=== PATIENT | female | born 1995 | race Two or more races ===

== ENCOUNTER 2017-05-15 12:19 | Inpatient (IN) ==
[2017-05-15] MEDS ORDERED: BUTORPHANOL 2 MG/ML VIAL IV PRN (13:35)
[2017-05-15 13:51] LABS: Basophils % 0.2 % (0.0-0.8); Eosinophils % 0.4 % (0.00-10.9); Hematocrit 30.6 VOL% (35.7-47.0); Hemoglobin 9.9 GM/DL (12.0-16.0); Immature Granulocytes % 0.7 %; Immature Granulocytes Absolute 0.08 #; Lymphocytes # 1.8 10*3/uL (1.4-4.0); Lymphocytes % 16.1 % (21.3-54.2); Mean Corpuscular HGB Conc 32.4 GM/DL (32-36); Mean Corpuscular Hemoglobin 28 PG (27-34); Mean Platelet Volume 12.5 FL (9.6-12.0); Monocytes # 0.8 10*3/uL (0.11-0.8); Monocytes % 7.3 % (1.7-12.7); NRBC # 0.02 10*3/uL; Neutrophils # 8.5 10*3/uL (1.4-7.4); Neutrophils % 75.3 % (38.7-73.9); Platelet Count 256 T/CUMM (130-400); Red Blood Count 3.56 MC/CUMM (3.8-5.5); Red Cell Distribution Width 13.7 % (9.3-17.3); White Blood Count 11.2 T/CUMM (4-12)
--- NOTE | 2017-05-15 15:32 | OB/GYN History & Physical ---
History of Present Illness Chief complaint: Here for induction of labor with CRUZ 5.2 cm on ultrasound today. History of present illness: Ms. Em is a 21 year old female Patient is a 21-year-old 1 para 0000 that presented for induction of labor at 40.3 weeks with an CRUZ of 5.2 cm noted on ultrasound today. She is 40.3 weeks gestation today. She receives care at [facility] with Cristal Linares women's health nurse practitioner. She had a total of 16 visits 3 ultrasound. Her records are available, current, have been reviewed, and are up-to-date. During the course of her , she has essentially not had any problems. Her group A strep test has been negative Medications: vitamins Labs: Blood type and RH O+, antibody screen negative, Rubella nonimmune at 2.3, HIV negative, HBsAG negative, GC negative, Chlamydia negative, Diabetic Screen 128, GBS negative Home Medications Medication Instructions Recorded Confirmed Type Ondansetron Odt Tab [Zofran Odt] 4 mg PO Q8H PRN #30 tablet 11/04/16 05/15/17 Rx Allergies Allergy/AdvReac Type Severity Reaction Status Date / Time Penicillins Allergy Unknown/Unable Verified 11/04/16 13:34 to obtain 12 point system: reviewed and no additional remarkable complaints except as stated Medical,Surgical,& Family Hx - Medical History Medical History: noncontributory Reproductive: No history of: Ectopic , Complication Other: History of: Miscellaneous Medical Problems (11 weeks 6 days ) - Surgical History Surgical History: noncontributory Reproductive Surgeries: Patient denies;: Section - Family History Family History: Reports;: Family Diabetes (FATHER), Family Psychiatric Problems (ALZHEIMERS, MGF) Denies;: Additional Family History - Social History Smoking Status: Never smoker Frequency of Alcohol Use: None Type of Drug Use: None Marital Status: Lives With:: Spouse Functional capacity: independent ambulation Exam CLAIM PROFESSIONAL - Constitutional General appearance: no acute distress - Antepartum / Post Antepartum Exam Cervix - Dilatation: 1 cm Effacement: 0 Station: -3 Rupture: intact Presentation: vtx Heart Rate: 137 [place]: irregular/ 40-50 sec/ mild Breast: bilateral: normal Abdomen obstetrics: Present: bowel sounds normal Vagina: Present: normal moisture Uterus exam: Present: enlarged (gravid, soft between contractions, EFW 7 pounds 11 ounces) Anus/Rectum: Present: normal perianal skin - Head Head exam: Present: normal inspection - Eye Eye exam: Present: EOMI - ENT ENT exam: Present: normal exam - Neck Neck exam: Present: normal inspection - Respiratory Respiratory exam: Present: clear to auscultation bilaterally - Cardiovascular Cardiovascular exam: Present: regular rate and rhythm - GI/Abdominal GI/Abdominal exam: Present: normal bowel sounds - Extremities Exam Extremities exam: Present: normal inspection, normal capillary refill, full ROM - Back Exam Back exam: Present: normal inspection - Neurological Exam Neurological exam: Present: alert, oriented X3, normal gait - Psychiatric Psychiatric exam: Present: normal affect, normal mood - Skin Skin exam: Present: normal color, warm, dry Assessment and Plan (1) Post-dates Status: Acute Current Visit: Yes (2) Anemia Status: Acute Current Visit: Yes Qualifiers: Anemia type: iron deficiency Results - Labs CBC & BMP: 05/15/17 13:43 Labs: Laboratory Tests 05/15/17 05/15/17 13:43 13:43 WBC 11.2 RBC 3.56 L Hgb 9.9 L Hct 30.6 L MCV 86.0 L MCH 28 MCHC 32.4 RDW 13.7 Plt Count 256 MPV 12.5 H Neut % (Auto) 75.3 H Lymph % (Auto) 16.1 L [place] % (Auto) 7.3 Eos % (Auto) 0.4 Baso % (Auto) 0.2 Neut # (Auto) 8.5 H Lymph # (Auto) 1.8 [place] # (Auto) 0.8 Eos # (Auto) 0.0 Baso # (Auto) 0.0 Immature Gran % 0.7 Nucleated RBC % 0.2 Immature Gran # 0.08 Nucleated RBCs # 0.02 Immature Plt Fraction 0.0 Blood Type O POSITIVE Antibody Screen Negative Quality Measures - VTE Contraindication to Pharmacological VTE Prophylaxis: Continuous Epidural Infusion
[2017-05-15] MEDS: LACTATED RINGERS 1,000 ML IV SCH (23:27)
[2017-05-16] MEDS: LACTATED RINGERS 1,000 ML IV SCH ×2 (00:59→06:23)
[2017-05-16] MEDS: ONDANSETRON 4 MG/2 ML VIAL IV PRN ×2 (03:13→20:05)
[2017-05-16] MEDS ORDERED: OXYTOCIN/LR 20 UNIT/1,000 ML BAG IV SCH (05:30)
[2017-05-16] MEDS ORDERED: ePHEDrine 50 MG/ML AMP IV PRN (06:04)
[2017-05-16] MEDS ORDERED: CITRIC ACID/SODIUM CITRATE 30 ML UDCUP PO ONE (06:04)
[2017-05-16] MEDS ORDERED: FAMOTIDINE 20 MG/2 ML VIAL IV ONE (06:04)
[2017-05-16] MEDS ORDERED: fentaNYL 2 MCG/ROPIV 0.2% EPID 150 ML EPIDURAL SCH (06:05)
[2017-05-16 08:18] LABS: Apearance,Urine CLEAR (Clear); Bilirubin,Urine Negative (Negative); Blood, Urine Negative (Negative); Glucose,Urine (UA) Negative (Negative); Ketones,Urine Negative (Negative); Nitrite,Urine Negative (Negative); Protein,Urine Negative; RBC,Urine <1 /HPF (0-4); Urine Color Straw (Yellow); Urine Specific Gravity 1.003 (1.001-1.035); Urine Urobilinogen < 2.0 EU/DL (0.2-1.0); WBC,Urine <1 /HPF (0-6)
--- NOTE | 2017-05-16 08:46 | OB/GYN Progress Note ---
Assessment and Plan (1) Post-dates Status: Acute Current Visit: Yes (2) Anemia Status: Acute Current Visit: Yes Qualifiers: Anemia type: iron deficiency FUNDER - PN: Subj Interval history: S: Denies any contractions since epidural was placed. Denies pressure, contractions, or pain. O: FHTs @ 140s with spontaneous variability and irregular variable and occasional late decelerations, nonrepetitive UCs every 2-4 min/ 50-60 sec/ mod SVE 6-7 cm/ 90%/ 0 to +1 station GBS negative Pitocin @ 6 mu/min A: IUP @ 40.4 wks, Pitocin Induction, Category I FHR tracing P: Start amnioinfusion. Reposition for comfort. Questions answered to desired level of satisfaction. Exam FUNDER - Constitutional Vitals: Vital Signs Temp Pulse Resp BP 05/16/17 08:00 97.0 F L 82 20 106/54 05/16/17 04:00 97.2 F L 67 18 103/56 05/16/17 03:42 97.2 F L 05/16/17 00:00 97.4 F L 78 18 93/54 05/15/17 19:20 97.1 F L 84 18 115/77 Results - Labs CBC & BMP: 05/15/17 13:43
[2017-05-16] MEDS ORDERED: miSOPROStol 200 MCG TABLET ONE (10:28)
[2017-05-16] MEDS ORDERED: LIDOCAINE 1% 50 ML VIAL ONE (10:28)
[2017-05-16] MEDS ORDERED: METHYLERGONOVINE 0.2 MG/1 ML AMP ONE (10:28)
--- NOTE | 2017-05-16 12:03 | Operative Note ---
Date of procedure: 05/16/17 Pre-op diagnosis: IUP of 40.3 weeks gestation, postdates, CRUZ 5.3 cm Post-op diagnosis: other () Procedure: Patient received dorsolithotomy position, complete and +2 station. Patient was draped and prepped. At 1135, head delivered in LIA position on the maternal pushing efforts with an epidural anesthetic over a midline episiotomy. Anterior then posterior shoulders were delivered easily without difficulty. delivered in usual fashion and secured with terminal meconium noted at delivery of . Mouth and nose bulb suctioned. Tactile stimulation provided to the in a placed on mother's abdomen. Cord doubly clamped and cut her father of the baby. Blood gases and cord blood obtained. placed in a radiant warmer per nursery guardian and attended per nursery RN. At 1138, spontaneous delivery of placenta via Thang position, with 3 vessel cord noted, normal cord insertion, with small calcifications present with normal cord insertion. Hemostasis maintained with fundal massage and Pitocin 20 units in 1000 cc of lactated Ringer's. Perineum inspected with midline episiotomy repair with a 2-0 chromic 2 under an epidural anesthetic. Female with Apgars 2 and 8 weighing 7 lbs. 2 oz. at 3293 grams. Mother is stable and in the room at the present time. Baby presently in the nursery per nursery RN. Mother desires to breast-feed. Anesthesia: epidural Surgeon / Physician: Delicia Rubio Estimated blood loss: other (150 cc) Specimens: other (placenta to pathology secondary to CRUZ 5.3 cm, spontaneous variable and late decelerations, postdates @ 40.3 wks gestation) Condition: stable Disposition: floor Results - Labs CBC & BMP: 05/15/17 13:43 Discharge Plan - Discharge Medications No Action Ondansetron Odt Tab [Zofran Odt] 4 mg PO Q8H PRN #30 tablet PRN Reason: Nausea - Follow Up or Referral - Forms/Instructions
[2017-05-16] MEDS ORDERED: RHO(D) IMMUNE GLOBULIN 300 MCG SYRINGE IM ONE (12:05)
[2017-05-16] MEDS ORDERED: ACETAMINOPHEN 325 MG TABLET PO PRN (12:05)
[2017-05-16] MEDS ORDERED: WITCH HAZEL PADS 100/JAR TOP PRN (12:05)
[2017-05-16] MEDS ORDERED: HYDROCORTISONE 2.5% RECTAL CREAM 30 GM TUBE TOP PRN (12:05)
[2017-05-16] MEDS ORDERED: BISACODYL 10 MG SUPP RECTAL PRN (12:05)
[2017-05-16] MEDS ORDERED: oxyCODONE/ACETAMINOPHEN 5-325 MG TABLET PO PRN ×3 (12:05→20:13)
[2017-05-16] MEDS ORDERED: DIPH/TET/ACEL PERT BOOSTER VACCINE 0.5 ML VIAL IM ONE (12:05)
[2017-05-16] MEDS ORDERED: LANOLIN 50% CREAM 0.3 OZ TUBE TOP PRN (12:05)
[2017-05-16] MEDS ORDERED: MEASLES/MUMPS/RUBELLA VACCINE 0.5 ML VIAL SUBCUT ONE (12:05)
[2017-05-16] MEDS ORDERED: IBUPROFEN 800 MG TABLET PO PRN (12:07)
[2017-05-16] MEDS ORDERED: OXYTOCIN/LR 20 UNIT/1,000 ML BAG IV ONE (15:32)
[2017-05-16] MEDS: BENZOCAINE 20%/MENTHOL 0.5% SPRAY 56 GM CAN TOP PRN (15:36)
[2017-05-16] MEDS: IBUPROFEN 800 MG TABLET PO PRN (15:36)
[2017-05-16] MEDS: DOCUSATE SODIUM 100 MG CAPSULE PO SCH (21:02)
[2017-05-16] MEDS: FERROUS SULFATE 325 MG TABLET PO SCH (21:03)
[2017-05-16] MEDS: oxyCODONE/ACETAMINOPHEN 5-325 MG TABLET PO PRN (21:03)
[2017-05-17] MEDS: oxyCODONE/ACETAMINOPHEN 5-325 MG TABLET PO PRN ×3 (04:34→23:20)
[2017-05-17 06:08] LABS: Basophils % 0.2 % (0.0-0.8); Eosinophils # 0.1 10*3/uL (0.0-0.87); Eosinophils % 0.5 % (0.00-10.9); Hematocrit 26.3 VOL% (35.7-47.0); Hemoglobin 8.7 GM/DL (12.0-16.0); Immature Granulocytes % 0.7 %; Lymphocytes # 2.6 10*3/uL (1.4-4.0); Mean Corpuscular HGB Conc 33.1 GM/DL (32-36); Mean Corpuscular Hemoglobin 28 PG (27-34); Mean Corpuscular Volume 84.8 FL (87-102); Mean Platelet Volume 11.8 FL (9.6-12.0); Monocytes % 7.1 % (1.7-12.7); Neutrophils # 9.9 10*3/uL (1.4-7.4); Neutrophils % 72.5 % (38.7-73.9); Platelet Count 195 T/CUMM (130-400); Red Cell Distribution Width 14.1 % (9.3-17.3); White Blood Count 13.7 T/CUMM (4-12)
[2017-05-17] MEDS: FERROUS SULFATE 325 MG TABLET PO SCH ×4 (08:38→23:36)
[2017-05-17] MEDS: DOCUSATE SODIUM 100 MG CAPSULE PO SCH ×3 (08:38→23:36)
[2017-05-17] MEDS: IBUPROFEN 800 MG TABLET PO PRN (08:41)
--- NOTE | 2017-05-17 08:41 | OB/GYN Progress Note ---
Assessment and Plan (1) Post-dates Status: Acute Current Visit: Yes (2) Anemia Status: Acute Current Visit: Yes Qualifiers: Anemia type: iron deficiency (3) (normal spontaneous vaginal delivery) Status: Acute Current Visit: Yes (4) Patient is a currently breast-feeding mother Status: Acute Current Visit: Yes TERRAZZO LAYER - PN: Subj Interval history: Breast feeding. Denies any problems presently. Requests control pills for control method of choice. A: Day 1, Breast Feeding, Stable, Anemia P: Continue routine care. Possible DC home tomorrow if stable. Exam TERRAZZO LAYER - Constitutional Vitals: Vital Signs Temp Pulse Resp BP Pulse Ox 05/17/17 07:24 97.2 F L 87 18 103/67 95 05/17/17 04:00 97.3 F L 84 16 102/60 98 05/17/17 03:00 18 05/17/17 01:00 18 05/16/17 23:50 98.6 F 87 18 104/65 96 05/16/17 20:10 85 18 106/60 98 05/16/17 20:00 97.3 F L 82 18 108/61 98 05/16/17 16:30 98.1 F 82 18 110/65 98 05/16/17 15:30 97.4 F L 76 18 121/78 100 05/16/17 12:00 97.8 F 109 H 20 110/58 General appearance: no acute distress - Antepartum / Post Post Exam Breast: bilateral: normal Abdomen obstetrics: Present: bowel sounds normal Vagina: Present: normal moisture Uterus exam: Present: enlarged (Firm, midline, 1 fingerbreadth below the umbilicus) Adnexa: bilateral: normal Anus/Rectum: Present: normal perianal skin - Head Head exam: Present: normal inspection - Eye Eye exam: Present: EOMI Pupils: Present: normal accommodation - ENT ENT exam: Present: normal exam, normal external ear exam - Neck Neck exam: Present: normal inspection - Respiratory Respiratory exam: Present: clear to auscultation bilaterally - Breast Menstruation: other (scant rubra) - Cardiovascular Cardiovascular exam: Present: regular rate and rhythm - GI/Abdominal GI/Abdominal exam: Present: normal bowel sounds - Extremities Exam Extremities exam: Present: normal inspection, normal capillary refill, full ROM - Back Exam Back exam: Present: normal inspection - Neurological Exam Neurological exam: Present: alert, oriented X3, normal gait - Psychiatric Psychiatric exam: Present: normal affect, normal mood - Skin Skin exam: Present: normal color, warm, dry Results - Labs CBC & BMP: 05/17/17 05:54 Labs: Laboratory Tests 05/15/17 05/15/17 05/16/17 13:43 13:43 07:44 WBC 11.2 RBC 3.56 L Hgb 9.9 L Hct 30.6 L MCV 86.0 L MCH 28 MCHC 32.4 RDW 13.7 Plt Count 256 MPV 12.5 H Neut % (Auto) 75.3 H Lymph % (Auto) 16.1 L [place] % (Auto) 7.3 Eos % (Auto) 0.4 Baso % (Auto) 0.2 Neut # (Auto) 8.5 H Lymph # (Auto) 1.8 [place] # (Auto) 0.8 Eos # (Auto) 0.0 Baso # (Auto) 0.0 Immature Gran % 0.7 Nucleated RBC % 0.2 Immature Gran # 0.08 Nucleated RBCs # 0.02 Immature Plt Fraction 0.0 Urine Color Straw Urine Appearance Clear Urine pH 7.0 Ur Specific [place] 1.003 Urine Protein Negative Urine Glucose (UA) Negative Urine Ketones Negative Urine Blood Negative Urine Nitrate Negative Urine Bilirubin Negative Urine Urobilinogen < 2.0 H Urine Leukocytes Negative Urine RBC <1 Urine WBC <1 Ur Culture Indicated? Not indicated Blood Type O POSITIVE Antibody Screen Negative 05/17/17 05:54 WBC 13.7 H RBC 3.10 L Hgb 8.7 L Hct 26.3 L MCV 84.8 L MCH 28 MCHC 33.1 RDW 14.1 Plt Count 195 D MPV 11.8 Neut % (Auto) 72.5 Lymph % (Auto) 19.0 L [place] % (Auto) 7.1 Eos % (Auto) 0.5 Baso % (Auto) 0.2 Neut # (Auto) 9.9 H Lymph # (Auto) 2.6 [place] # (Auto) 1.0 H Eos # (Auto) 0.1 Baso # (Auto) 0.0 Immature Gran % 0.7 Nucleated RBC % 0.0 Immature Gran # 0.10 Nucleated RBCs # 0.00 Immature Plt Fraction 0.0 Urine Color Urine Appearance Urine pH Ur Specific [place] Urine Protein Urine Glucose (UA) Urine Ketones Urine Blood Urine Nitrate Urine Bilirubin Urine Urobilinogen Urine Leukocytes Urine RBC Urine WBC Ur Culture Indicated? Blood Type Antibody Screen
[2017-05-17] MEDS ORDERED: SIMETHICONE CHEW 80 MG TABLET PO PRN (19:14)
[2017-05-17] MEDS ORDERED: MAGNESIUM HYDROXIDE SUSP 30 ML UDCUP PO PRN (19:14)
[2017-05-18] MEDS: oxyCODONE/ACETAMINOPHEN 5-325 MG TABLET PO PRN (04:36)
[2017-05-18 07:17] VITALS: BP 84/57
--- NOTE | 2017-05-18 09:04 | Discharge Summary ---
Hospital Course - Hospital Course Hospital Course: Patient is a 1 now para 1 that presented at 40.3 weeks for induction of labor secondary to postdates and an CRUZ of 5.3. Labor progressed under an epidural anesthetic and Cytotec and Pitocin induction for the patient to deliver a female weighing 7 lbs. 2 oz. with Apgars 2 and 8. Patient did have a midline episiotomy that was repaired and is healing well without problems. Patient is presently breast-feeding without difficulty. She indicates she has noticed some sore nipples during breast-feeding but denies any other problems. She did experience anemia prior to and she has received iron during her hospitalization. She is stable and being discharged home today Diagnosis - Discharge Diagnosis (1) Post-dates Status: Resolved (2) Anemia Status: Acute (3) (normal spontaneous vaginal delivery) Status: Resolved (4) Patient is a currently breast-feeding mother Status: Acute Discharge Plan - Discharge Data Disposition: Disch To Home/Self Care Condition at Discharge: Stable Discharge Diet: advance to your usual diet Activity: resume usual activities as tolerated Hygiene: may shower Weight Bearing at Discharge: full weight bearing Driving: not for (2 weeks) Contact your physician if you experience:: fever over 101, Difficulty voiding, Redness or swelling, Nausea/Vomiting, Shortness of breath, Bleeding, pain uncontrolled by pain medications - Discharge Medications New Ferrous Sulfate Tab [Feosol Original Tab] 325 mg PO TID #90 tablet Ibuprofen Tab [Motrin Tab] 800 mg PO Q8H PRN #90 tablet PRN Reason: Pain Moderate (4-7) No Action Ondansetron Odt Tab [Zofran Odt] 4 mg PO Q8H PRN #30 tablet PRN Reason: Nausea - Follow Up or Referral Follow Up: Cristal Linares NP [Physician] - 2 Weeks - Forms/Instructions Exam - Constitutional Vitals: Period Temp Pulse Resp BP Sys/Allred Pulse Ox Last 24 Hr 97.2 F-97.8 F 78-86 16-20 84-121/52-76 96-98 General appearance: no acute distress - Head Head exam: Present: normal inspection - Eye Eye exam: Present: EOMI - ENT ENT exam: Present: normal exam, normal external ear exam - Neck Neck exam: Present: normal inspection - Respiratory Respiratory exam: Present: clear to auscultation bilaterally - Cardiovascular Cardiovascular exam: Present: regular rate and rhythm - GI/Abdominal GI/Abdominal exam: Present: normal bowel sounds (uterus firm, midline 2 below umbilicus. Perineum intact and healing well. Scant rubra noted on perinal pad) - Extremities Exam Extremities exam: Present: normal inspection, normal capillary refill, full ROM - Back Exam Back exam: Present: normal inspection - Neurological Exam Neurological exam: Present: alert, oriented X3, normal gait - Psychiatric Psychiatric exam: Present: normal affect, normal mood - Skin Skin exam: Present: normal color, warm Discharge Results Procedures and tests throughout hospitalization: Laboratory Results - last 72 hr 05/15/17 05/15/17 05/16/17 13:43 13:43 07:44 WBC 11.2 RBC 3.56 L Hgb 9.9 L Hct 30.6 L MCV 86.0 L MCH 28 MCHC 32.4 RDW 13.7 Plt Count 256 MPV 12.5 H Neut % (Auto) 75.3 H Lymph % (Auto) 16.1 L [place] % (Auto) 7.3 Eos % (Auto) 0.4 Baso % (Auto) 0.2 Neut # (Auto) 8.5 H Lymph # (Auto) 1.8 [place] # (Auto) 0.8 Eos # (Auto) 0.0 Baso # (Auto) 0.0 Immature Gran % 0.7 Nucleated RBC % 0.2 Immature Gran # 0.08 Nucleated RBCs # 0.02 Immature Plt Fraction 0.0 Urine Color Straw Urine Appearance Clear Urine pH 7.0 Ur Specific [place] 1.003 Urine Protein Negative Urine Glucose (UA) Negative Urine Ketones Negative Urine Blood Negative Urine Nitrate Negative Urine Bilirubin Negative Urine Urobilinogen < 2.0 H Urine Leukocytes Negative Urine RBC <1 Urine WBC <1 Ur Culture Indicated? Not indicated Blood Type O POSITIVE Antibody Screen Negative 05/17/17 05:54 WBC 13.7 H RBC 3.10 L Hgb 8.7 L Hct 26.3 L MCV 84.8 L MCH 28 MCHC 33.1 RDW 14.1 Plt Count 195 D MPV 11.8 Neut % (Auto) 72.5 Lymph % (Auto) 19.0 L [place] % (Auto) 7.1 Eos % (Auto) 0.5 Baso % (Auto) 0.2 Neut # (Auto) 9.9 H Lymph # (Auto) 2.6 [place] # (Auto) 1.0 H Eos # (Auto) 0.1 Baso # (Auto) 0.0 Immature Gran % 0.7 Nucleated RBC % 0.0 Immature Gran # 0.10 Nucleated RBCs # 0.00 Immature Plt Fraction 0.0 Urine Color Urine Appearance Urine pH Ur Specific [place] Urine Protein Urine Glucose (UA) Urine Ketones Urine Blood Urine Nitrate Urine Bilirubin Urine Urobilinogen Urine Leukocytes Urine RBC Urine WBC Ur Culture Indicated? Blood Type Antibody Screen DS: Provider Date of admission: 05/15/17 13:35 Primary care physician: . No PCP Attending physician on admission: Kvng Downey DO Consults: 05/15/17 13:35 Consult to Anesthesiology [CONS] Routine Consulting Provider: Reason for Anesthesiology: Epidural Consult Comment: Epidural for pain managment 05/16/17 12:05 Consult to Documentation Writer [CONS] Routine Consult Documentation Writer: Breast Feeding Discharging clinician: MARJORIE Slaughter
[2017-05-18] MEDS: FERROUS SULFATE 325 MG TABLET PO SCH (10:07)
[2017-05-18] MEDS: DOCUSATE SODIUM 100 MG CAPSULE PO SCH (10:07)
[2017-05-18] MEDS: IBUPROFEN 800 MG TABLET PO PRN (11:00)
[2017-05-18] MEDS: BENZOCAINE 20%/MENTHOL 0.5% SPRAY 56 GM CAN TOP PRN (11:00)
--- NOTE | 2017-05-18 13:18 | Pathology Report from [facility] ---
[facility] ACCESSION # : [id number] PATIENT NAME : Maribell Jones ORDERING DR : JOCELYNE LANDRUM DO CLINICAL HX: IUP @ 40.4 wks gestation, post deivery date, spontaneous decelerations (late) POST-OP DX: Same SPECIMEN INFO: Placenta GROSS DESCRIPTION: Received fresh labeled with the patients name and consists of a 364 gram placenta which measures 17.0 x 16.0 x 2.3 cm. membranes are lucas and translucent. The umbilical cord measures 16.5 cm, contains three vessels and is pericentrally inserted. The surface is blue-martinez and intact. The maternal surface is red-martinez and intact with scattered calcifications seen. Sectioning reveals no gross abnormalities. Sections submitted: A membranes and cord, B and maternal surfaces. DIAGNOSIS FOR MARIBELL JONES: PLACENTA, 40.4 WEEKS GESTATIONAL AGE, DELIVERY : Mature placenta, 364 gms trimmed weight. Small intraplacental hematoma. Trivascular umbilical cord, 16.5 cm in length. COLLECTED DATE: 05/17/2017 [facility] REPORT DATE: 05/18/2017 ELECTRONICALLY SIGNED BY: Neelam Prabhakar M.D. 05/18/2017 - 11:02:32 [place]
== END 2017-05-18 12:05 | disposition home or self-care (01) | DRG 775 ==
LOC: N.LDOUT 12:19 → N.LD 12:21 → N.OB 05-16 15:04
PROVIDERS: ADMIT Obstetrics & Gynecology; ATTEND Obstetrics & Gynecology